=== PATIENT | male | born 1970 | race Caucasian/White ===

== ENCOUNTER 2018-12-09 02:10 | Emergency (ER) ==
[2018-12-09] MEDS ORDERED: TETRACAINE 0.5% UNIT-DOSE OP STA (02:15)
[2018-12-09 02:17] VITALS: BP 147/95; TEMP 97.2; BMI 30.8
[2018-12-09] MEDS ORDERED: FUL-GLO OP ONE (02:27)
[2018-12-09] MEDS: EYE-STREAM OP ONE ×2 (02:33→03:05)
[2018-12-09] MEDS ORDERED: BLEPHAMIDE EYE OINTMENT OP STA (02:52)
[2018-12-09] MEDS ORDERED: EYE-STREAM OP STA (02:53)
--- NOTE | 2018-12-09 02:55 | ED.PDOC ---
General ED Provider: Dr. DON RAHMAN-ER Chief Complaint: Eye Problem Stated Complaint: mila been grinding and i have something in my eye Time Seen by Physician: 02:15 Mode of Arrival: Walk-In Information Source: Patient Exam Limitations: No limitations Nursing and Triage Documentation Reviewed and Agree: Yes Does patient meet sepsis criteria?: No System Inflammatory Response Syndrome: Not Applicable Sepsis Protocol: For patient's 13 years and over: Temp is 96.8 and below OR 101 and greater Pulse >90 BPM Resp >20/minute Acutely Altered Mental Status Are patient's symptoms suggestive of a new infection, such as: -Pneumonia -Skin, Soft Tissue -Endocarditis -UTI -Bone, Joint Infection -Implantable Device -Acute Abdominal Infection -Wound Infection -Meningitis -Blood Stream Catheter Infection -Unknown EENT Complaint Exam - Eye Complaint/Exam Onset/Duration: 24 hrs Symptoms Are: Still present Initial Severity: Mild Current Severity: Mild Location: Discreet Character: Reports: Dull Aggravating: Reports: Blinking Alleviating: Reports: None Associated Signs and Symptoms: Denies: Photophobia, Clear drainage, Purulent drainage, Vision impairment, Fever, Swelling Related History: Reports: Foreign body, Trauma Eye Surgical History: Reports: None Penetrating Injury Risk Factors: Grinding Globe Rupture Risk Factors: None Acute Glaucoma Risk Factors: None Optic Artery Occlusion Risk Factors: None Visual Field: Normal Extraocular Movement: Normal Orbit Findings: Normal Globe Findings: Intact Lid Findings: Normal Corneal Findings: Clear Fluorescein Uptake: Yes Fundi: Normal Differential Diagnoses: Corneal Abrasion, Foreign Body, Penetrating Injury Review of Systems - Review Of Systems Constitutional: Reports: No symptoms Eyes: Reports: Pain Ears, Nose, Mouth, Throat: Reports: No symptoms Respiratory: Reports: No symptoms Cardiac: Reports: No symptoms GI: Reports: No symptoms : Reports: No symptoms Musculoskeletal: Reports: No symptoms Skin: Reports: No symptoms Neurological: Reports: No symptoms Endocrine: Reports: No symptoms Hematologic/Lymphatic: Reports: No symptoms All Other Systems: Reviewed and Negative Past Medical History - Past Medical History Previously Healthy: Yes Endocrine: Reports: Unknown Cardiovascular: Reports: Unknown Respiratory: Reports: Unknown Hematological: Reports: Unknown Gastrointestinal: Reports: Unknown Genitourinary: Reports: Unknown Neuro/Psych: Reports: Unknown Musculoskeletal: Reports: Unknown Cancer: Reports: Unknown - Surgical History General Surgical History: Reports: Unknown - Family History Family History: Reports: Unknown - Social History Smoking Status: Current every day smoker, Heavy tobacco smoker Hx Substance Use: No Alcohol Screening: Heavy - Immunizations Tetanus Shot up to Date: Yes Physical Exam - Physical Exam Appearance: Well-appearing, No pain distress, Well-nourished Pain Distress: Mild Eyes: ASHLEY, EOMI, Conjunctiva clear ENT: Ears normal, Nose normal, Oropharynx normal Neck: Supple Respiratory: Airway patent, Breath sounds clear, Breath sounds equal, Respirations nonlabored Cardiovascular: RRR, Pulses normal, No rub, No murmur GI/: Soft, Nontender, No masses, Bowel sounds normal, No Organomegaly Musculoskeletal: Normal strength Skin: Warm Neurological: Sensation intact, Motor intact, Reflexes intact, Cranial nerves intact, Alert, Oriented Psychiatric: Affect appropriate, Mood appropriate Procedures - Eye Procedure Location of Foreign Body: right eye Tetracaine Drops Administered: Yes Depth: Imbedded Foreign Body Completely Removed: No Eye Irrigated: No Progress: referred to opthamology Critical Care Note - Critical Care Note Total Time (mins): 0 Course - Course Orders, Labs, Meds: Orders Category Date Time Status ED EYE PATCH .ONCE EMERGENCY 12/09/18 02:53 Ordered Balanced Salt Solution [Eye-Stream] MEDS 12/09/18 02:27 Discontinued 1 bottle OP .STK-MED ONE Balanced Salt Solution [Eye-Stream] MEDS 12/09/18 02:53 Stat 1 bottle OP ONCE STA Fluorescein Sodium [Ful-Kenna] MEDS 12/09/18 02:27 Discontinued 1 strip OP .STK-MED ONE Sulfacetm Na/Prednisol AC [Blephamide Eye Ointment] MEDS 12/09/18 02:52 Stat 1 applic OP ONCE STA Tetracaine HCl/Pf [Tetracaine 0.5% Unit-Dose] MEDS 12/09/18 02:15 Discontinued 2 drop OP ONCE STA Medications Discontinued Medications Generic Name Dose Route Start Last Admin Trade Name Freq PRN Reason Stop Dose Admin Tetracaine HCl 2 drop 12/09/18 02:15 12/09/18 02:30 Tetracaine 0.5% Unit-Dose OP 12/09/18 02:16 2 drop ONCE STA Administration Vital Signs: Temp Pulse Resp BP Pulse Ox 12/09/18 02:11 97.2 F L 80 16 147/95 H 96 Departure - Departure Time of Disposition: 02:56 Disposition: HOME SELF-CARE Discharge Problem: Corneal foreign body Qualifiers: Encounter type: initial encounter Laterality: right Qualified Code(s): T15.01XA - Foreign body in cornea, right eye, initial encounter Instructions: Eye Foreign Body (ED) Condition: Good Pt referred to PMD for follow-up: Yes IPMP verified?: No Additional Instructions: keep eye patched---norco 7.5mg q 4hrs prn pain#4---prepare for referral to eye doctor this am Allergies/Adverse Reactions: Allergies No Known Drug Allergies Adverse Reaction (Verified 12/09/18 02:42)
== END 2018-12-09 03:15 | disposition home or self-care (01) ==
LOC: ED 02:10
DX: T15.01XA Foreign body in cornea, right eye, initial encounter (principal); F17.210 Nicotine dependence, cigarettes, uncomplicated
CPT/HCPCS: 99282